=== PATIENT | male | born 1955 | race Caucasian/White ===

== ENCOUNTER 2017-10-24 11:05 | Emergency (ER) | payer BC ==
[2017-10-24 11:33] VITALS: BP 167/98; PULSE 79; TEMP 98.8; BMI 39.2
--- NOTE | 2017-10-24 11:43 | PDOC ---
History of Present Illness - General Chief Complaint: Laceration Stated Complaint: L BARTH LACERATION Time Seen by Provider: 10/24/17 11:10 - History of Present Illness Initial Comments: 10/24/17 11:39 Chief complaint: Leg laceration History of present illness: Immediately [employer], the patient stumbled into a radiator, sustaining a laceration to the left calf. Bleeding has subsided. There is no significant pain or distal numbness tingling or weakness. Review of systems: Denies lightheadedness, dizziness, unsteadiness of gait, visual or focal neurologic symptoms, chest pain, shortness of breath, abdominal pain, distal numbness tingling pain or weakness. Remainder systems reviewed and found to be negative Past medical history: Psoriasis for which the patient uses only topicals and light therapy. Has never taken biological's or other disease modifying agents Social/family history reviewed and noncontributory Physical exam: Alert and oriented well-developed well-nourished no acute distress cheerful and cooperative Afebrile, vital signs normal Left lower leg: There is several superficial abrasions of the mid calf, as well as a deep laceration of the anterior calf, about three fourths of the way down the leg from the knee. It is oriented obliquely, contains skin and subcutaneous tissue, no bone is exposed. There is some mild retraction of the skin. Distal pulses are full. No distal sensory or motor deficits. Good capillary refill. Impression: Lower leg laceration Plan: Minimal repair, just enough to cover the defect. Rest and elevation of the leg and close follow-up to monitor healing. Past History - Past Medical History Allergies/Adverse Reactions: Allergies Allergy/AdvReac Type Severity Reaction Status Date / Time No Known Allergies Allergy Unverified 10/24/17 11:25 Home Medications: Ambulatory Orders Hydrocodone/Acetaminophen [Vicodin Es 7.5-300 mg Tablet] 1 tab PO Q4HWA PRN #15 tablet MDD 4 10/24/17 Ibuprofen [Motrin -] 600 mg PO PRN 10/24/17 Paroxetine HCl [Paxil] 20 mg PO DAILY 10/24/17 COPD: No Other medical history: PSORIASIS,ANXIETY , ARTHRITIS - Surgical History Cholecystectomy: Yes - Immunization History Immunization Up to Date: Yes - Suicide/Smoking/Psychosocial Hx Smoking History: Never smoked Information on smoking cessation initiated: No Hx Alcohol Use: No Drug/Substance Use Hx: No Substance Use Type: None *Physical Exam - Vital Signs Last Vital Signs Temp Pulse Resp BP Pulse Ox 98.8 F 79 20 167/98 98 10/24/17 11:09 10/24/17 11:09 10/24/17 11:09 10/24/17 11:10/24/17 11:09 Medical Decision Making - Medical Decision Making 10/24/17 12:30 Procedure note: Repair of laceration Skin was prepped with Betadine and thoroughly scrubbed and irrigated with normal saline Local anesthesia 1% lidocaine plain, with good result Wound was minimally debrided of devitalized skin and explored. Skin and subcutaneous tissue only, no deep structures involved. No punctures. No foreign bodies. Additional copious irrigation under pressure with normal saline Hemostasis with light pressure Skin loosely approximated, only enough to cover defects, 4-0 nylon interrupted skin sutures. Patient was informed about the loose skin approximation and probable increase healing time, which was undertaken to avoid undue tension on the skin and minimize chance of infection and skin necrosis There was no bleeding and the wound was adequately covered. Dressed with bacitracin, nonadherent dressing, 4 x 4, and Quan Wound care instructions discussed Recheck immediately if sign of infection Otherwise wound check and evaluation of sutures in 10 days. Instructed to rest and elevate for 2-3 days to minimize chance of swelling and infection. Return to ER immediately if sign of infection develops. Fully ambulatory and in no pain or other distress upon discharge to follow-up as directed *DC/Admit/Observation/Transfer Diagnosis at time of Disposition: Laceration - Discharge Dispostion Disposition: HOME Condition at time of disposition: Improved Decision to Admit order: No - Prescriptions Prescriptions: Hydrocodone/Acetaminophen [Vicodin Es 7.5-300 mg Tablet] 1 tab PO Q4HWA PRN #15 tablet MDD 4 PRN Reason: Pain - Referrals - Patient Instructions Printed Discharge Instructions: DI for Laceration Repair Additional Instructions: Recheck immediately if sign of infection. Otherwise return for suture removal in 10 days. Rest and elevate the leg for 2-3 days to prevent swelling and increased risk of infection. - Post Discharge Activity
[2017-10-24] MEDS ORDERED: LIDOCAINE HCL 2% (20ML MULTI-DOSE VIAL) NR ONE (11:57)
== END 2017-10-24 12:35 | disposition home or self-care (01) ==
LOC: FER 11:05
PROC: 0HQLXZZ Repair Left Lower Leg Skin, External Approach (ICD-10-PCS; principal; 2017-10-24)
DX: S81.812A Laceration without foreign body, left lower leg, initial encounter (principal); W45.8XXA Other foreign body or object entering through skin, initial encounter; Y93.9 Activity, unspecified; Y92.89 Other specified places as the place of occurrence of the external cause
CPT/HCPCS: 99282-25